=== PATIENT | female | born 1965 | race Caucasian/White ===

== ENCOUNTER → 2018-03-13 | Outpatient (CLI) | payer BC ==
[2018-03-13 11:34] LABS: INR 0.98; PROTHROMBIN TIME 13.1 SECONDS (12.4-14.5)
[2018-03-13 11:35] LABS: PARTIAL THROMBOPLASTIN TIME 32.8 SECONDS (26.8-37.9)
[2018-03-13 11:57] LABS: ALBUMIN 3.2 GM/DL (3.2-5.2); ALBUMIN/GLOBULIN RATIO 0.91 (1.00-1.93); ALKALINE PHOSPHATASE 123 U/L (45-117); ALT/SGPT 598 U/L (12-78); AST/SGOT 278 U/L (7-37); BILIRUBIN,DIRECT 0.6 MG/DL (0.0-0.2); GAMMA GLUTAMYLTRANSPEPTIDASE 117 U/L (5-55); IRON (FE) 106 UG/DL (50-170); PERCENT SATURATION 28.3 % (13.2-45.0); TOTAL IRON BINDING CAPACITY 374 UG/DL (250-450); TOTAL PROTEIN 6.7 GM/DL (6.4-8.2)
[2018-03-14 10:39] LABS: HEPATITIS B SURFACE ANTIGEN NEGATIVE (NEGATIVE)
[2018-03-14 11:00] LABS: HEPATITIS B CORE ANTIBODY IGM NEGATIVE (NEGATIVE)
[2018-03-14 11:02] LABS: HEPATITIS A ANTIBODY IGM NEGATIVE (NEGATIVE)
[2018-03-19 00:07] LABS: ANCA-ATYPICAL 1:40 titer (Neg:<1:20); ANTI-MITOCHONDRIAL ANTIBODY 0.3 Units (0.0-20.0); ANTINUCLEAR ANTIBODIES DIRECT Negative (Negative); CERULOPLASMIN 19.9 mg/dL (19.0-39.0); CYTOPLASMIC NEUTROP AB ANCA-C <1:20 titer (Neg:<1:20); LIVER-KIDNEY MICROSOMAL ABY 0.4 Units (0.0-20.0); PERINUCLEAR AB ANCA-P <1:20 titer (Neg:<1:20); TISSUE TRANSGLUTAMINASE IgA <2 U/mL (0-3)
== END ==
LOC: M LAB 10:51
DX: R74.8 Abnormal levels of other serum enzymes (principal)
CPT/HCPCS: 82977

== ENCOUNTER → 2018-03-19 | Outpatient (CLI) | payer BC ==
[2018-03-19 15:45] LABS: INR 1.04; PROTHROMBIN TIME 13.7 SECONDS (12.1-14.4)
[2018-03-19 15:57] LABS: ALBUMIN 3.1 GM/DL (3.2-5.2); ALBUMIN/GLOBULIN RATIO 0.91 (1.00-1.93); ALKALINE PHOSPHATASE 124 U/L (45-117); ALT/SGPT 264 U/L (12-78); AST/SGOT 107 U/L (7-37); BILIRUBIN,DIRECT 0.4 MG/DL (0.0-0.2); BILIRUBIN,TOTAL 0.6 MG/DL (0.2-1.0); TOTAL PROTEIN 6.5 GM/DL (6.4-8.2)
[2018-03-22 00:08] LABS: CYTOMEGALOVIRUS IgM ANTIBODY <30.0 AU/mL (0.0-29.9); HSV IgM TYPES 1&2 <0.91 Ratio (0.00-0.90)
== END ==
LOC: M LAB 15:00
DX: R94.5 Abnormal results of liver function studies (principal)
CPT/HCPCS: 80076

== ENCOUNTER → 2018-04-10 | Outpatient (CLI) | payer BC ==
[2018-04-10 10:09] LABS: INR 0.91; PROTHROMBIN TIME 12.3 SECONDS (12.1-14.4)
[2018-04-10 10:18] LABS: ALBUMIN 3.4 GM/DL (3.2-5.2); ALBUMIN/GLOBULIN RATIO 0.94 (1.00-1.93); ALKALINE PHOSPHATASE 99 U/L (45-117); ALT/SGPT 54 U/L (12-78); AST/SGOT 32 U/L (7-37); BILIRUBIN,DIRECT 0.2 MG/DL (0.0-0.2); BILIRUBIN,TOTAL 0.4 MG/DL (0.2-1.0); GAMMA GLUTAMYLTRANSPEPTIDASE 39 U/L (5-55)
== END ==
LOC: M LAB 09:34
DX: R94.5 Abnormal results of liver function studies (principal)
CPT/HCPCS: 82977

== ENCOUNTER 2021-11-26 12:27 | Inpatient (IN) | payer BC ==
[~2021-11-26] VITALS: Ht 152.4 cm; Wt 81.8 kg
[2021-11-26 14:57] VITALS: BP 132/76
[2021-11-26] MEDS ORDERED: CONRAY-60 60% 50ML VIAL (Q9961) As Ordered ONE (15:21)
[2021-11-26] MEDS ORDERED: LIDOCAINE 2% 5ML JELLY UROJET As Ordered ONE (15:21)
[2021-11-26] MEDS ORDERED: MIDAZOLAM INJ 2MG/2ML VIAL (J2250 PER 1MG) As Ordered ONE (15:28)
[2021-11-26] MEDS ORDERED: fentaNYL 100 MCG/2 ML INJECTION As Ordered ONE (15:28)
[2021-11-26] MEDS ORDERED: propofoL 200 MG/20 ML VIAL As Ordered ONE (15:28)
[2021-11-26] MEDS ORDERED: LIDOCAINE 2% 100MG/5ML SDV (FOR ANES.) As Ordered ONE (15:28)
[2021-11-26 16:18] LABS: HEMOGLOBIN 11.6 g/dl (12.0-15.5); MEAN CORPUSCULAR HEMOGLOBIN 28.9 pg (27.0-33.0); MEAN CORPUSCULAR HGB CONC 32.2 g/dl (32.0-36.5); MEAN CORPUSCULAR VOLUME 89.6 fl (80.0-96.0); PLATELET COUNT, AUTOMATED 143 10^3/uL (150-450); RED BLOOD COUNT 4.02 10^6/uL (4.00-5.40); WHITE BLOOD COUNT 9.9 10^3/uL (4.0-10.0)
[2021-11-26] MEDS ORDERED: ONDANSETRON 4MG/2ML VIAL As Ordered ONE (16:21)
[2021-11-26 16:42] LABS: BILIRUBIN,TOTAL 0.5 MG/DL (0.2-1.0); CALCIUM LEVEL 8.4 MG/DL (8.5-10.1); CREATININE FOR GFR 1.16 MG/DL (0.55-1.30); GLOMERULAR FILTRATION RATE 51.4 (>51); POTASSIUM SERUM 3.8 MEQ/L (3.5-5.1); TOTAL PROTEIN 6.5 GM/DL (6.4-8.2)
[2021-11-26 17:08] LABS: ATYPICAL LYMPH 1 % (0-5); LYMPHOCYTES 4 % (16-44); METAMYELOCYTES 1 % (0-0); MONOCYTES 1 % (0-5); NEUTROPHILS 77 % (28-66)
[2021-11-26 17:09] LABS: TOXIC VACUOLATION 1+
[2021-11-26 17:11] LABS: PLATELET ESTIMATE DECREASED (NORMAL)
[2021-11-26] MEDS ORDERED: ONDANSETRON 4MG/2ML VIAL IV PRN (17:40)
[2021-11-26] MEDS ORDERED: oxyCODONE 5MG TAB PO PRN (17:40)
[2021-11-26] MEDS: LR 1,000 ML IV SCH ×2 (17:40→17:52)
[2021-11-26] MEDS ORDERED: fentaNYL 100 MCG/2 ML INJECTION IV PRN (17:40)
[2021-11-26] MEDS ORDERED: LISI10TA22 PO (18:33)
[2021-11-26] MEDS ORDERED: TRUL10IN PO (18:33)
[2021-11-26] MEDS ORDERED: ESTR0.5T3 PO (18:33)
[2021-11-26] MEDS ORDERED: B-122500 PO (19:01)
[2021-11-26] MEDS ORDERED: VITA200016 PO (19:01)
[2021-11-26] MEDS ORDERED: VITMTA PO (19:01)
[2021-11-26] MEDS ORDERED: VITA400C53 PO (19:01)
[2021-11-26] MEDS ORDERED: BIOT1TAB PO (19:01)
[2021-11-26] MEDS ORDERED: HOME MED LIST COMPLETE! XX SCH (19:05)
[2021-11-26] MEDS: PIPERACILLIN/TAZOBACTAM SOD 3.375 GM in D5W MINI-BAG PLUS 50 ML IV SCH (19:41)
[2021-11-26] MEDS: NORCO, ANEXSIA 5/325MG TABLET (HYDROcodone/ACETAMINOPHEN) PO PRN (21:06)
[2021-11-26 22:00] VITALS: BP 135/70
[2021-11-27] MEDS: PIPERACILLIN/TAZOBACTAM SOD 3.375 GM in D5W MINI-BAG PLUS 50 ML IV SCH ×4 (01:47→19:59)
[2021-11-27] MEDS: NORCO, ANEXSIA 5/325MG TABLET (HYDROcodone/ACETAMINOPHEN) PO PRN ×3 (03:07→20:10)
[2021-11-27 06:00] VITALS: BP 111/59
[2021-11-27 06:28] LABS: HEMATOCRIT 32.2 % (36.0-47.0); HEMOGLOBIN 10.4 g/dl (12.0-15.5); MEAN CORPUSCULAR HEMOGLOBIN 29.4 pg (27.0-33.0); MEAN CORPUSCULAR HGB CONC 32.3 g/dl (32.0-36.5); PLATELET COUNT, AUTOMATED 100 10^3/uL (150-450); RED BLOOD COUNT 3.54 10^6/uL (4.00-5.40); WHITE BLOOD COUNT 9.8 10^3/uL (4.0-10.0)
[2021-11-27 06:51] LABS: CREATININE FOR GFR 1.5 MG/DL (0.55-1.30); GLOMERULAR FILTRATION RATE 38.2 (>51); POTASSIUM SERUM 4.1 MEQ/L (3.5-5.1)
[2021-11-27] MEDS: NS 1,000 ML IV SCH ×3 (07:54→19:59)
[2021-11-27 14:00] VITALS: BP 96/61
[2021-11-27 18:21] VITALS: BP 110/64
[2021-11-27 22:00] VITALS: BP 96/61
[2021-11-28] MEDS: PIPERACILLIN/TAZOBACTAM SOD 3.375 GM in D5W MINI-BAG PLUS 50 ML IV SCH ×2 (02:36→09:11)
[2021-11-28] MEDS: ACETAMINOPHEN TAB 650MG DOSE (2X325MG) PO PRN ×2 (02:41→09:13)
[2021-11-28 06:00] VITALS: BP 125/69
[2021-11-28 06:27] LABS: HEMATOCRIT 30.7 % (36.0-47.0); HEMOGLOBIN 9.8 g/dl (12.0-15.5); MEAN CORPUSCULAR HEMOGLOBIN 28.6 pg (27.0-33.0); MEAN CORPUSCULAR HGB CONC 31.9 g/dl (32.0-36.5); MEAN CORPUSCULAR VOLUME 89.5 fl (80.0-96.0); RED BLOOD COUNT 3.43 10^6/uL (4.00-5.40); WHITE BLOOD COUNT 7.1 10^3/uL (4.0-10.0)
[2021-11-28 06:51] LABS: CREATININE FOR GFR 1.16 MG/DL (0.55-1.30); GLOMERULAR FILTRATION RATE 51.4 (>51); POTASSIUM SERUM 3.3 MEQ/L (3.5-5.1)
[2021-11-28 07:01] LABS: PLATELET COUNT, AUTOMATED 97 10^3/uL (150-450)
[2021-11-28] MEDS ORDERED: POTASSIUM CHLORIDE 10MEQ SR TABLET PO ONE (08:00)
[2021-11-28 08:02] LABS: INR 1.18; PROTHROMBIN TIME 15.4 SECONDS (12.7-14.5)
[2021-11-28 08:03] LABS: PARTIAL THROMBOPLASTIN TIME 40.3 SECONDS (25.9-37.0)
[2021-11-28] MEDS ORDERED: CEFDINIR 300 MG CAP (OMNICEF) PO SCH (09:00)
[2021-11-28] MEDS ORDERED: CEFD300CAP PO (11:07)
[2021-11-28 12:16] LABS: D-DIMER QUANT > 4000 ng/ml (<500)
[2021-11-28] MEDS ORDERED: NS 500 ML IV ONE (12:25)
[2021-11-28] MEDS ORDERED: NS 1,000 ML IV SCH (12:25)
[2021-11-28] MEDS ORDERED: ISOVUE-370 76% 100ML VIAL As Ordered ONE (12:39)
[2021-11-28 14:00] VITALS: BP 125/93
[2021-11-28] MEDS ORDERED: HEPARIN SOD (PORCINE) 5000UNITS/ML 1ML VIAL/SYRINGE SC SCH (14:00)
== END 2021-11-28 16:26 | disposition home health service (06) | DRG 465 ==
LOC: M MSPAV 14:05
PROVIDERS: ADMIT Internal Medicine; ATTEND Internal Medicine
PROC: 0T778DZ Dilation of Left Ureter with Intraluminal Device, Via Natural or Artificial Opening Endoscopic (ICD-10-PCS; principal; 2021-11-26 15:10)
DX: N13.2 Hydronephrosis with renal and ureteral calculous obstruction (principal); N17.9 Acute kidney failure, unspecified; R78.81 Bacteremia; I10 Essential (primary) hypertension; E11.9 Type 2 diabetes mellitus without complications; Z79.899 Other long term (current) drug therapy; R00.0 Tachycardia, unspecified

== ENCOUNTER 2022-01-05 05:59 | Day surgery (SDC) | payer BC ==
[~2022-01-05] VITALS: Ht 152.4 cm; Wt 75.3 kg
[~2022-01-05 05:59] MED LIST: B-122500 PO; BIOT1TAB PO; BIOT5TAB3 PO; CEFD300CAP PO; CYAN500T14 PO; ESTR0.5T3 PO; LISI10TA22 PO; TRUL10IN PO; VITA200016 PO; VITA400C53 PO; VITMTA PO
[2022-01-05] MEDS ORDERED: LR 1,000 ML IV ONE (06:00)
[2022-01-05] MEDS ORDERED: ceFAZolin SOD 2 GM in IV 1 EA IV ONE (06:00)
[2022-01-05] MEDS ORDERED: CONRAY-60 60% 50ML VIAL (Q9961) As Ordered ONE (07:06)
[2022-01-05] MEDS ORDERED: LevoFLOXacin 500MG/100ML IV BAG (J1956 PER 250MG) As Ordered ONE (07:06)
[2022-01-05] MEDS ORDERED: LIDOCAINE 2% 100MG/5ML SDV (FOR ANES.) As Ordered ONE (07:15)
[2022-01-05] MEDS ORDERED: dexameTHASONE 4 MG/ML 1ML VIAL (J1100 PER 1MG) As Ordered ONE (07:15)
[2022-01-05] MEDS ORDERED: METOCLOPRAMIDE INJ 10MG/2ML VIAL (J2765 PER 1) As Ordered ONE (07:15)
[2022-01-05] MEDS ORDERED: ONDANSETRON 4MG/2ML VIAL As Ordered ONE (07:15)
[2022-01-05] MEDS ORDERED: propofoL 200 MG/20 ML VIAL As Ordered ONE (07:15)
[2022-01-05] MEDS ORDERED: KETOROLAC 60MG 2ML VIAL As Ordered ONE (07:15)
[2022-01-05] MEDS ORDERED: MIDAZOLAM INJ 2MG/2ML VIAL (J2250 PER 1MG) As Ordered ONE (07:17)
[2022-01-05] MEDS ORDERED: fentaNYL 100 MCG/2 ML INJECTION As Ordered ONE (07:17)
[2022-01-05] MEDS ORDERED: LevoFLOXacin IV 500 MG in IV 1 EA IV ONE (07:20)
[2022-01-05 09:05] VITALS: BP 144/76
[2022-01-05] MEDS ORDERED: MEPERIDINE INJ 25 MG/ML VIAL (J2175) IV PRN (09:05)
[2022-01-05] MEDS ORDERED: PROMETHAZINE 25MG/ML 1ML VIAL IV PRN (09:05)
[2022-01-05] MEDS ORDERED: ONDANSETRON 4MG/2ML VIAL IV PRN (09:05)
[2022-01-05] MEDS ORDERED: oxyCODONE 5MG TAB PO PRN (09:05)
[2022-01-05] MEDS ORDERED: HYDROMORPHONE HCL 0.5 MG/ 0.5 ML SYRINGE (J1170 PER 1) IV PRN ×2 (09:05→09:10)
[2022-01-05] MEDS ORDERED: PERCOCET 5MG/325MG TAB PO PRN (09:10)
== END 2022-01-05 09:30 | disposition home or self-care (01) ==
LOC: M SDC 05:59
PROVIDERS: ATTEND Urology
DX: N20.1 Calculus of ureter (principal); E11.9 Type 2 diabetes mellitus without complications; I10 Essential (primary) hypertension; R06.83 Snoring; Z79.899 Other long term (current) drug therapy
CPT/HCPCS: 52310; 74420; C1769; J1100; J1885; J1956; J2250; J2405; J2765; J3010; Q9961